=== PATIENT | female | born 1985 | race American Indian/Alaskan Native ===

== ENCOUNTER 2021-11-08 19:27 | Emergency (ER) | payer OTHER ==
[2021-11-08] MEDS ORDERED: KETOROLAC 10 MG TAB PO ONE (20:16)
[2021-11-08] MEDS ORDERED: DEXAMETHASONE 4 MG TAB PO ONE (20:17)
[2021-11-08] MEDS ORDERED: BUTALB/ACETAMINOPHEN/CAFFEINE TAB PO ONE (20:17)
[2021-11-08] MEDS ORDERED: diphenhydrAMINE 25 MG CAP PO ONE (20:17)
[2021-11-08] MEDS ORDERED: ONDANSETRON 4 MG ODT TAB PO ONE (20:19)
[2021-11-08] MEDS ORDERED: METOCLOPRAMIDE 10 MG TAB PO ONE (20:19)
--- NOTE | 2021-11-08 21:39 | Emergency Department Report ---
ED Headache HPI - General Chief Complaint: Headache Stated Complaint: HEADACHE Time Seen by Provider: 11/08/21 20:14 - History of Present Illness Initial Comments: 36-year-old black female with a past medical history of fibromyalgia and migraines presents to the emergency department for evaluation of severe headache that started around 430 today. She states that she has some nausea vomiting and photophobia with headache. She denies dizziness, vision changes. She states that she took some Tylenol for headache without improvement. She states that headache is similar to her usual headache but just worse. Timing/Duration: 4-6 hours Quality: severe, constant Head Injury Location: frontal, occipital Recent Head Trauma: occasional headaches Modifying Factors: improves with: exposure to light Associated Symptoms: nausea/vomiting. denies: fatigue, facial pain, fever/chill s, flushing, loss of consciousness, nasal congestion, nasal drainage, numbness in legs/feet, seizures, sinus infection, stiff neck, vision changes, weakness Allergies/Adverse Reactions: Allergies codeine Allergy (Verified 11/08/21 20:04) Anaphylaxis gluten Allergy (Verified 11/08/21 20:04) Anaphylaxis Morpholine Analogues Allergy (Verified 11/08/21 20:04) Anaphylaxis Penicillins Allergy (Verified 11/08/21 20:04) Angioedema soy Allergy (Verified 11/08/21 20:04) Anaphylaxis Home Medications: Ambulatory Orders Butalb/Acetaminophen/Caffeine [Fioricet 50-300-40 mg CAP] 1 cap PO Q8HR PRN #12 cap 11/08/21 ED Review of Systems ROS: Stated complaint: HEADACHE Other details as noted in HPI Comment: All other systems reviewed and negative Constitutional: denies: chills Eyes: denies: eye pain ENT: denies: ear pain Respiratory: denies: cough, orthopnea Cardiovascular: denies: chest pain, palpitations, dyspnea on exertion Endocrine: no symptoms reported Gastrointestinal: nausea, vomiting. denies: abdominal pain, diarrhea, hematemesis, melena, hematochezia Genitourinary: denies: urgency, dysuria, frequency, hematuria Musculoskeletal: denies: back pain Skin: denies: rash, lesions Neurological: headache. denies: weakness, numbness, paresthesias, confusion, abnormal gait, vertigo Psychiatric: denies: anxiety, depression Hematological/Lymphatic: denies: easy bleeding, easy bruising ED Past Medical Hx - Past Medical History Previous Medical History?: Yes Hx Headaches / Migraines: Yes Additional medical history: Fibromyalgia, Scoliosis, Iritable Bowel Syn - Surgical History Past Surgical History?: No - Medications Home Medications: Home Medications Medication Instructions Recorded Confirmed Last Taken Type Butalb/Acetaminophen/Caffeine 1 cap PO Q8HR PRN #12 cap 11/08/21 Unknown Rx [Fioricet 50-300-40 mg CAP] ED Physical Exam - General Limitations: No Limitations General appearance: alert, in no apparent distress - Head Head exam: Present: atraumatic, normocephalic - Eye Eye exam: Present: normal appearance. Absent: conjunctival injection - Neck Neck exam: Present: normal inspection. Absent: tenderness - Respiratory Respiratory exam: Absent: respiratory distress - Cardiovascular Cardiovascular Exam: Present: tachycardia - GI/Abdominal GI/Abdominal exam: Absent: distended - Extremities Exam Extremities exam: Present: normal inspection - Back Exam Back exam: Present: normal inspection, full ROM. Absent: tenderness, CVA tenderness (R), CVA tenderness (L) - Neurological Exam Neurological exam: Present: alert, oriented X3, normal gait. Absent: motor sensory deficit - Expanded Neurological Exam Expanded Patient oriented to: Present: person, place, time Speech: Present: fluid speech Cranial nerves: EOM's Intact: Normal Best Eye Response ([place]): (4) open spontaneously Best Motor Response ([place]): (6) obeys commands Best Verbal Response ([place]): (5) oriented [place] Total: 15 - Psychiatric Psychiatric exam: Present: normal mood - Skin Skin exam: Present: warm, dry, intact, normal color ED Course Vital Signs 11/08/21 11/08/21 19:58 20:27 Temperature 98.6 F Pulse Rate 122 H Respiratory 17 16 Rate Blood Pressure 109/80 [Right] O2 Sat by Pulse 100 Oximetry - Reevaluation(s) Reevaluation #1: 11/08/21 21:39 Headache improved and mostly resolved. Nausea vomiting resolved. ED Medical Decision Making - Medical Decision Making 36-year-old black female with a past medical history of fibromyalgia and migraines presents to the emergency department for evaluation of severe headache that started around 430 today. She states that she has some nausea vomiting and photophobia with headache. She denies dizziness, vision changes. She states that she took some Tylenol for headache without improvement. She states that headache is similar to her usual headache but just worse. Headache and nausea vomiting mostly resolved after medication. No changes in neurologic status. Patient will be sent home with a prescription for Fioricet to take as needed for headache. She is advised to follow-up with primary care provider or neurology if worsening symptoms. She is advised to follow-up in the emergency department for any concerning symptoms. Plan of care was discussed with patient and she verbalized understanding of and agreement with. Critical care attestation.: If time is entered above; I have spent that time in minutes in the direct care of this critically ill patient, excluding procedure time. ED Disposition Clinical Impression: Headache Qualifiers: Headache type: unspecified Headache chronicity pattern: acute headache Intractability: not intractable Qualified Code(s): R51.9 - Headache, unspecified Disposition: 01 HOME / SELF CARE / HOMELESS Is pt being admited?: No Condition: Stable Instructions: Migraine Headache, [id number], General Headache Without Cause Additional Instructions: Take medications as prescribed. Follow-up with primary care provider or neurology as needed for worsening symptoms. Return to the emergency room for any concerning symptoms. Prescriptions: Butalb/Acetaminophen/Caffeine [Fioricet 50-300-40 mg CAP] 1 cap PO Q8HR PRN #12 cap PRN Reason: Headache Referrals: CATRACHITA GLASER MD [Referring] - 3-5 Days Forms: Work/School Release Form(ED) Time of Disposition: 21:42
[2021-11-08 22:21] VITALS: BP 96/68
== END 2021-11-08 22:20 | disposition home or self-care (01) ==
LOC: ED 19:27
DX: R51.9 Headache, unspecified (principal)
CPT/HCPCS: 99282; J8540; J3490; Q0162